=== PATIENT | female | born 1950 | race Caucasian/White ===

== ENCOUNTER 2023-12-07 09:51 | Inpatient (IN) | payer MEDICARE, BC ==
[2023-12-07 10:48] LABS: #Basophils 0.1 10x3/uL (0.0-0.2); #Eosinphils 0.1 10x3/uL (0.0-0.5); #Monocytes 0.4 10x3/uL (0.0-1.1); #Neutrophils 4.3 10x3/uL (1.5-8.4); %Lymphocytes 21.9 % (18.0-47.0); %Monocytes 5.9 % (0.0-10.0); %Neutrophils 69.9 % (40.0-75.0); Hematocrit 28.6 % (34.9-44.5); Hemoglobin 8.9 g/dL (12.0-15.5); Mean Corpuscular HGB CONC 31.1 g/dL (32.0-36.0); Mean Corpuscular Hemoglobin 26.8 pg (27.0-33.0); Mean Corpuscular Volume 86.1 fl (81.6-98.3); Mean Platelet Volume 10.4 fl (7.4-10.4); Platelet Count 535 10x3/uL (150-450); RBC Distribution Width 14.5 % (11.5-14.5); Red Blood Cell (RBC) Count 3.32 10x6/uL (3.90-5.03); White Blood Cell (WBC) Count 6.1 10x3/uL (3.5-10.5)
[2023-12-07 10:59] LABS: ALT (SGPT) 19 U/L (8-55); AST (SGOT) 23 U/L (5-34); Albumin 4.5 g/dL (3.4-4.8); Alkaline Phosphatase 89 U/L (40-110); Anion Gap 17 mmol/L (10-20); BUN (Urea Nitrogen) 15 mg/dL (9.8-20.1); Bilirubin, Total 0.5 mg/dL (0.2-1.2); Calc. Creatinine Clearance 0 mL/min (70-130); Calcium 9.2 mg/dL (7.8-10.44); Carbon Dioxide 17 mmol/L (23-31); Chloride 109 mmol/L (98-107); Estimated GFR 77; Globulin 2.3 g/dL (2.4-3.5); Glucose 127 mg/dL (83-110); Potassium 3.9 mmol/L (3.5-5.1); Protein, Total 6.8 g/dL (5.8-8.1); Sodium 139 mmol/L (136-145)
[2023-12-07 11:02] LABS: Troponin I Less than 0.010 ng/mL (< 0.028)
[2023-12-07] MEDS ORDERED: Furosemide 40 MG (4 mL) VIAL ONE (12:25)
[2023-12-07] MEDS ORDERED: Acetaminophen 650 MG Suppository PR PRN (16:28)
[2023-12-07] MEDS ORDERED: Acetaminophen 325 MG TAB PO PRN (16:28)
[2023-12-07] MEDS ORDERED: Carvedilol 6.25 MG TAB PO SCH (19:15)
[2023-12-07] MEDS: Atorvastatin Calcium 20 MG TAB PO SCH (20:45)
[2023-12-07] MEDS ORDERED: Metoprolol Tartrate 50 MG TAB PO SCH (21:00)
[2023-12-08 04:26] LABS: #Eosinphils 0.1 10x3/uL (0.0-0.5); #Monocytes 0.5 10x3/uL (0.0-1.1); #Neutrophils 4.1 10x3/uL (1.5-8.4); %Basophils 0.7 % (0.0-2.0); %Eosinophils 1.1 % (0.0-6.0); %Lymphocytes 22.2 % (18.0-47.0); %Monocytes 7.7 % (0.0-10.0); Hematocrit 24.1 % (34.9-44.5); Hemoglobin 7.8 g/dL (12.0-15.5); Mean Corpuscular HGB CONC 32.4 g/dL (32.0-36.0); Mean Corpuscular Hemoglobin 27.1 pg (27.0-33.0); Mean Corpuscular Volume 83.7 fl (81.6-98.3); Mean Platelet Volume 10.6 fl (7.4-10.4); Platelet Count 408 10x3/uL (150-450); RBC Distribution Width 14.5 % (11.5-14.5); Red Blood Cell (RBC) Count 2.88 10x6/uL (3.90-5.03); White Blood Cell (WBC) Count 6.1 10x3/uL (3.5-10.5)
[2023-12-08 04:36] LABS: Anion Gap 14 mmol/L (10-20); BUN (Urea Nitrogen) 14 mg/dL (9.8-20.1); Calc. Creatinine Clearance 100 mL/min (70-130); Calcium 8.7 mg/dL (7.8-10.44); Carbon Dioxide 20 mmol/L (23-31); Chloride 108 mmol/L (98-107); Estimated GFR 92; Glucose 105 mg/dL (83-110); Potassium 3.2 mmol/L (3.5-5.1); Sodium 139 mmol/L (136-145)
[2023-12-08 05:33] VITALS: BMI 33.1
[2023-12-08] MEDS: Furosemide 40 MG (4 mL) VIAL SLOW IVP SCH ×2 (05:52→15:39)
[2023-12-08] MEDS ORDERED: Furosemide 20 MG (2 mL) VIAL SLOW IVP SCH (06:00)
[2023-12-08] MEDS ORDERED: Clopidogrel Bisulfate 75 MG TAB PO SCH (09:00)
[2023-12-08] MEDS: Aspirin 81 mg Enteric Coated Tablet PO SCH (10:36)
[2023-12-08] MEDS: Lisinopril 20 MG TAB PO SCH (10:36)
[2023-12-08] MEDS: Potassium Chloride 20 MEQ TAB PO SCH ×2 (11:01→17:05)
[2023-12-08] MEDS: Ondansetron ODT 4 MG TAB PO PRN (15:00)
[2023-12-08] MEDS: Ibuprofen 600 MG TAB PO SCH ×2 (17:04→22:00)
[2023-12-08] MEDS: Colchicine 0.6 MG TAB PO SCH (21:10)
[2023-12-08] MEDS: Atorvastatin Calcium 20 MG TAB PO SCH (21:11)
[2023-12-09 05:28] LABS: #Eosinphils 0.1 10x3/uL (0.0-0.5); #Monocytes 0.6 10x3/uL (0.0-1.1); %Basophils 0.6 % (0.0-2.0); %Eosinophils 0.9 % (0.0-6.0); %Lymphocytes 27.3 % (18.0-47.0); %Monocytes 8.6 % (0.0-10.0); %Neutrophils 62.4 % (40.0-75.0); Hematocrit 25.8 % (34.9-44.5); Hemoglobin 8.1 g/dL (12.0-15.5); Mean Corpuscular HGB CONC 31.4 g/dL (32.0-36.0); Mean Corpuscular Hemoglobin 26.6 pg (27.0-33.0); Mean Corpuscular Volume 84.9 fl (81.6-98.3); Mean Platelet Volume 10.4 fl (7.4-10.4); Platelet Count 456 10x3/uL (150-450); RBC Distribution Width 14.5 % (11.5-14.5); Red Blood Cell (RBC) Count 3.04 10x6/uL (3.90-5.03); White Blood Cell (WBC) Count 6.4 10x3/uL (3.5-10.5)
[2023-12-09 05:43] LABS: Anion Gap 12 mmol/L (10-20); BUN (Urea Nitrogen) 24 mg/dL (9.8-20.1); Calc. Creatinine Clearance 87 mL/min (70-130); Calcium 8.9 mg/dL (7.8-10.44); Carbon Dioxide 22 mmol/L (23-31); Chloride 109 mmol/L (98-107); Estimated GFR 80; Glucose 112 mg/dL (83-110); Sodium 139 mmol/L (136-145)
[2023-12-09] MEDS: Ibuprofen 600 MG TAB PO SCH ×3 (07:05→16:12)
[2023-12-09] MEDS ORDERED: Furosemide 40 MG TAB PO SCH (07:30)
[2023-12-09] MEDS ORDERED: Lidocaine 1% PF 5 ML VIAL ONE (08:26)
[2023-12-09] MEDS ORDERED: Sodium Bicarbonate 2.5 MEQ/5 ML SDV ONE (08:26)
[2023-12-09] MEDS: Colchicine 0.6 MG TAB PO SCH ×2 (10:01→21:18)
[2023-12-09] MEDS: Potassium Chloride 20 MEQ TAB PO SCH ×2 (10:01→16:14)
[2023-12-09] MEDS: Aspirin 81 mg Enteric Coated Tablet PO SCH (10:01)
[2023-12-09] MEDS: Lisinopril 20 MG TAB PO SCH (10:02)
[2023-12-09 10:55] LABS: BF Color Yellow; Body Fluid Source Pleural Fluid; Clarity Clear (Clear); Tube # EDTA
[2023-12-09 11:01] LABS: BF Segmented Neutrophils 18 %; Cell Count Non Hematic 17 %; Lymphocytes 65 %
[2023-12-09 13:41] LABS: Pleural Fluid, Amylase Less than 30 U/L (Not Available); Pleural Fluid, Glucose 116 mg/dL; Pleural Fluid, LDH 114 U/L (Not Available); Pleural Fluid, Protein 3.8 g/dL
[2023-12-09] MEDS: Ondansetron ODT 4 MG TAB PO PRN (16:14)
[2023-12-09] MEDS: Atorvastatin Calcium 20 MG TAB PO SCH (21:18)
[2023-12-09] MEDS: Ibuprofen 400 MG TAB PO SCH (21:19)
[2023-12-10 05:39] LABS: #Basophils 0.1 10x3/uL (0.0-0.2); #Eosinphils 0.2 10x3/uL (0.0-0.5); #Monocytes 0.8 10x3/uL (0.0-1.1); #Neutrophils 5.9 10x3/uL (1.5-8.4); %Basophils 0.6 % (0.0-2.0); %Eosinophils 2.2 % (0.0-6.0); %Lymphocytes 19.6 % (18.0-47.0); %Monocytes 9.3 % (0.0-10.0); %Neutrophils 67.8 % (40.0-75.0); Hematocrit 25.6 % (34.9-44.5); Hemoglobin 7.9 g/dL (12.0-15.5); Mean Corpuscular HGB CONC 30.9 g/dL (32.0-36.0); Mean Corpuscular Hemoglobin 26.2 pg (27.0-33.0); Mean Corpuscular Volume 84.8 fl (81.6-98.3); Mean Platelet Volume 10.4 fl (7.4-10.4); Platelet Count 459 10x3/uL (150-450); RBC Distribution Width 14.7 % (11.5-14.5); Red Blood Cell (RBC) Count 3.02 10x6/uL (3.90-5.03); White Blood Cell (WBC) Count 8.7 10x3/uL (3.5-10.5)
[2023-12-10 05:59] LABS: Anion Gap 12 mmol/L (10-20); BUN (Urea Nitrogen) 33 mg/dL (9.8-20.1); Calc. Creatinine Clearance 60 mL/min (70-130); Calcium 8.8 mg/dL (7.8-10.44); Carbon Dioxide 20 mmol/L (23-31); Chloride 111 mmol/L (98-107); Estimated GFR 51; Glucose 121 mg/dL (83-110); Potassium 4.1 mmol/L (3.5-5.1); Sodium 139 mmol/L (136-145)
[2023-12-10] MEDS: Ibuprofen 400 MG TAB PO SCH (06:28)
[2023-12-10] MEDS ORDERED: Lisinopril 20 MG TAB PO SCH (09:00)
[2023-12-10] MEDS: Aspirin 81 mg Enteric Coated Tablet PO SCH (09:37)
[2023-12-10 12:27] VITALS: BP 98/55; TEMP 97.4
[2023-12-10 14:44] LABS: Troponin I Less than 0.010 ng/mL (< 0.028)
== END 2023-12-10 01:00 | disposition home or self-care (01) | DRG 291 ==
LOC: CSHERS 09:51 → CSHERHOLD 14:26 → CSHTELE 20:15
PROVIDERS: ADMIT Internal Medicine; ATTEND Internal Medicine
PROC: 0W9B3ZZ Drainage of Left Pleural Cavity, Percutaneous Approach (ICD-10-PCS; principal; 2023-12-09)
DX: I11.0 Hypertensive heart disease with heart failure (principal); I50.31 Acute diastolic (congestive) heart failure; J90 Pleural effusion, not elsewhere classified; Z88.2 Allergy status to sulfonamides; Z79.82 Long term (current) use of aspirin; Z79.899 Other long term (current) drug therapy; I25.10 Atherosclerotic heart disease of native coronary artery without angina pectoris; Z95.1 Presence of aortocoronary bypass graft; Z95.5 Presence of coronary angioplasty implant and graft; E78.5 Hyperlipidemia, unspecified; Z85.3 Personal history of malignant neoplasm of breast; D64.9 Anemia, unspecified; R11.2 Nausea with vomiting, unspecified; T50.4X5A Adverse effect of drugs affecting uric acid metabolism, initial encounter
CPT/HCPCS: 32555; 36415; 71045; 80048; 80053; 82150; 82945; 83615; 83880; 84157; 84484; 85025; 86140; 87070; 87205; 88112; 88305; 88341; 88342; 89051; 93005; 93010; 93306; 96374; J1940; Q0162